=== PATIENT | male | born 1955 | race African-American/Black ===

== ENCOUNTER 2022-12-08 11:28 | Emergency (ER) | payer OTHER ==
[~2022-12-08] VITALS: Ht 175.3 cm; Wt 89.0 kg
[2022-12-08] MEDS ORDERED: SODIUM CHLORIDE 0.9% 1,000 ML IV ONE (12:15)
[2022-12-08 13:11] LABS: BASOPHILS % 0.4 % (0.0-2.0); EOSINOPHILS % 1.2 % (0.0-5.0); HEMATOCRIT. 42.6 % (42.0-52.0); HEMOGLOBIN. 14.2 g/dL (14.0-18.0); MEAN CORPUSCULAR HEMOGLOBIN 28.9 pg (28.0-32.0); MEAN CORPUSCULAR VOLUME 86.7 fL (80.0-94.0); MEAN PLATELET VOLUME 8.6 fl (7.4-10.4); MONOCYTES % 7.6 % (2.0-8.0); NEUTROPHILS % 61.8 % (40.0-76.0); PLATELET 252 x1000/uL (130-400); RED BLOOD CELL COUNT 4.91 mill/uL (4.7-6.1); RED CELL DISTRIBUTION WIDTH 13.2 % (11.6-14.6)
[2022-12-08 13:22] LABS: CHLORIDE 107 mEq/L (98-107)
[2022-12-08 13:41] LABS: CARBAMAZEPINE < 0.5 ug/mL (4-12)
[2022-12-08] MEDS ORDERED: HYDRALAZINE HCL 25MG TABLET PO NR (14:45)
[2022-12-08] MEDS ORDERED: LEVETIRACETAM 1000MG PREMIX 100 ML IV ONE (14:45)
[2022-12-08] MEDS ORDERED: LABETALOL HCL 200MG TABLET PO SCH (15:00)
[2022-12-08 16:10] VITALS: BP 117/71
== END 2022-12-08 16:47 | disposition short-term general hospital (02) ==
LOC: ER 11:28
DX: G40.909 Epilepsy, unspecified, not intractable, without status epilepticus (principal); I10 Essential (primary) hypertension; R55 Syncope and collapse; E78.00 Pure hypercholesterolemia, unspecified; Z86.73 Personal history of transient ischemic attack (TIA), and cerebral infarction without residual deficits
CPT/HCPCS: 36415; 70450; 71045; 80053; 80156; 80165; 80185; 82962; 84484; 85025; 93005; 96361; 96365; 99285; J1953; J7030